=== PATIENT | male | born 1960 | race Caucasian/White ===

== ENCOUNTER 2019-07-31 11:38 | Emergency (ER) | payer BC ==
[~2019-07-31] VITALS: Ht 170.2 cm; Wt 84.0 kg
[2019-07-31 13:50] VITALS: BP 154/73
[2019-07-31 14:24] LABS: INFLUENZA A PATIENT POSITIVE (NEGATIVE); INFLUENZA B PATIENT NEGATIVE (NEGATIVE)
[2019-07-31] MEDS ORDERED: ACETAMINOPHEN 500 MG TABLET PO ONE (14:30)
--- NOTE | 2019-07-31 14:50 | RAD ---
CHEST PA LATERAL Technique: PA and lateral views of the chest were obtained. Clinical History: Cough back pain and fever Comparison: None. Findings: The heart and pulmonary vasculature appear within normal limits. A few reticular opacities of lungs is likely chronic pulmonary fibrosis. This calcified granuloma in the left upper lung. The pleural margins are clear. Impression: No acute chest process is seen. Electronically signed by: Erwin Zarate III, MD (07/31/2019 2:46 PM) [id number]
--- NOTE | 2019-07-31 15:18 | PHYS DOC ---
Past Medical History Past Medical History: No Pertinent History, GERD Past Surgical History: No Surgical History Smoking Status: Current Every Day Smoker Alcohol Use: Occasionally Drug Use: None Adult General Chief Complaint Chief Complaint: FLU SYMPTOM HPI HPI Patient is a 58 year old male patient who presents to the ED today with fever, cough and body aches for 3 days. Patient reports the was diagnosed with influenza last week. Review of Systems Review of Systems Constitutional: Reports subjective fevers, body aches Eyes: Denies change in visual acuity, redness, or eye pain [] HENT: Reports nasal congestion Respiratory: Reports cough, denies shortness of breath [] Cardiovascular: No additional information not addressed in HPI [] GI: Denies abdominal pain, nausea, vomiting, bloody stools or diarrhea [] : Denies dysuria or hematuria [] Musculoskeletal: Denies back pain or joint pain [] Integument: Denies rash or skin lesions [] Neurologic: Denies headache, focal weakness or sensory changes [] All other systems were reviewed and found to be within normal limits, except as documented in this note. Current Medications Current Medications Current Medications Medications (Trade) Dose Ordered Sig/Melvi Start Time Stop Time Status Last Admin Dose Admin Acetaminophen (Tylenol) 1,000 mg 1X ONCE 07/31/19 14:30 07/31/19 14:31 DC 07/31/19 14:46 1,000 MG Allergies Allergies Allergies Coded Allergies Type Severity Reaction Last Updated Verified No Known Drug Allergies 11/16/13 No Physical Exam Physical Exam Constitutional: Well developed, well nourished, no acute distress, non-toxic appearance. [] HENT: Normocephalic, atraumatic, bilateral external ears normal, oropharynx moist, no oral exudates, nose normal. [] Eyes: PERRLA, EOMI, conjunctiva normal, no discharge. [] Neck: Normal range of motion, no tenderness, supple, no stridor. [] Cardiovascular:Heart rate regular rhythm, no murmur [] Lungs & Thorax: Bilateral breath sounds clear to auscultation [] Abdomen: Bowel sounds normal, soft, no tenderness, no masses, no pulsatile masses. [] Skin: Warm, dry, no erythema, no rash. [] Back: No tenderness, no CVA tenderness. [] Extremities: No tenderness, no cyanosis, no clubbing, ROM intact, no edema. [] Neurologic: Alert and oriented X 3, normal motor function, normal sensory function, no focal deficits noted. [] Psychologic: Affect normal, judgement normal, mood normal. [] Current Patient Data Vital Signs Vital Signs Date Time Temp Pulse Resp B/P (MAP) Pulse Ox O2 Delivery O2 Flow Rate FiO2 07/31/19 13:50 100.7 76 20 154/73 (100) 98 Room Air 100.7 Lab Values Laboratory Tests Test 07/31/19 13:55 Influenza Type A Antigen Positive (NEGATIVE) Influenza Type B Antigen Negative (NEGATIVE) EKG EKG [] Radiology/Procedures Radiology/Procedures []PROCEDURE: CHEST PA & LATERAL CHEST PA LATERAL Technique: PA and lateral views of the chest were obtained. Clinical History: Cough back pain and fever Comparison: None. Findings: The heart and pulmonary vasculature appear within normal limits. A few reticular opacities of lungs is likely chronic pulmonary fibrosis. This calcified granuloma in the left upper lung. The pleural margins are clear. Impression: No acute chest process is seen. Electronically signed by: Edis Zarate III, MD (07/31/2019 2:46 PM) [id number] DICTATED and SIGNED BY: EDIS ZARATE III, MD DATE: 07/31/19 1446 Course & Med Decision Making Course & Med Decision Making Pertinent Labs and Imaging studies reviewed. (See chart for details) This is a 58-year-old male patient presenting to the ED today with fever for the aches chills, symptoms began 3 days ago. Was exposed to influenza. Chest x-ray interpreted by radiologist as negative for any acute findings, positive for influenza a, supportive care measures recommended. Dragon Disclaimer Mari Disclaimer This electronic medical record was generated, in whole or in part, using a voice recognition dictation system. Departure Departure Impression: Primary Impression: Influenza A Additional Impressions: Fever Cough Disposition: 01 HOME, SELF-CARE Condition: STABLE Referrals: UNKNOWN PCP NAME (PCP) Follow-up with your doctor in 1-2 weeks Patient Instructions: Influenza A (H1N1) Additional Instructions: You have influenza A, we recommend you rest, push fluids, maintain good hand hygiene. Please follow-up with your doctor in the course of this week or next week, come back to the ED at any point symptoms worsen. Take tylenol/ibuprofen for fever or pain Problem Qualifiers Additional Impressions: Fever Fever type: unspecified Qualified Codes: R50.9 - Fever, unspecified MUTUNGA,KATHLEEN DIALLO Jul 31, 2019 15:18
== END 2019-07-31 15:20 | disposition home or self-care (01) ==
LOC: ER 11:38
DX: J10.1 Influenza due to other identified influenza virus with other respiratory manifestations (principal); R05 Cough; R09.81 Nasal congestion; K21.9 Gastro-esophageal reflux disease without esophagitis; F17.200 Nicotine dependence, unspecified, uncomplicated
CPT/HCPCS: 71046; 87804; 99284